=== PATIENT | female | born 1965 | race Caucasian/White ===

== ENCOUNTER 2016-12-29 07:34 | Emergency (ER) ==
[2016-12-29] MEDS ORDERED: CATAPRES ONE (08:24)
[2016-12-29 09:09] LABS: MANUAL DIFF NEEDED? NO; URINE SOURCE CLEAN CATCH
[2016-12-29 09:36] LABS: AGAP 9; ALBUMIN 4.1 g/dL (3.5-5.0); ALKALINE PHOSPHATASE 109 U/L (32-104); BUN 11 mg/dL (8-22); CALCIUM 8.7 mg/dL (8.8-10.2); CHLORIDE 104 mmol/L (98-107); COSMO 277; GOT 21 U/L (10-30); GPT 21 U/L (10-36); POTASSIUM 3.8 mmol/L (3.5-5.1); SODIUM 139 mmol/L (136-145); TCO2 26 mmol/L (25-35)
[2016-12-29 09:39] LABS: URINE WBC <10 /HPF (<10)
[2016-12-29 09:40] LABS: BILIRUBIN URINE NEGATIVE (NEGATIVE); BLOOD URINE 2+ (NEGATIVE); CLARITY CLEAR (CLEAR); COLOR YELLOW; GLUCOSE URINE NEGATIVE (NEGATIVE); LEUKOCYTES URINE TRACE (NEGATIVE); NITRITE URINE NEGATIVE (NEGATIVE); PROTEIN URINE TRACE mg/dL (NEGATIVE); URINE CULTURE PL NEEDED? YES; URINE EPITHELIAL CELLS >10 /HPF (<10); UROBILINOGEN URINE NORMAL
[2016-12-29 09:49] LABS: BASO% 0.5 % (0.0-0.8); EOS# 0.12 X1000 (0.0-0.7); EOS% 1.5 % (0.0-10.0); HEMATOCRIT 45.5 % (37.0-47.0); IMM GRAN# 0.02 X1000 (0.0-0.04); IMM GRAN% 0.2 % (0.0-0.5); LYMPH# 1.66 X1000 (1.2-3.4); LYMPH% 20.3 % (20.5-51.1); MCH 28.2 PG (27-31); MCV 85.5 FL (81-99); MONO# 0.42 X1000 (0.11-0.59); MONO% 5.1 % (1.7-9.3); MPV 9.7 FL (7.4-10.4); NEUT% 72.4 % (42.2-75.2); PLT 350 X1000 (130-400); RBC 5.32 XMIL (4.2-5.4)
--- NOTE | 2016-12-29 09:57 | PROVIDER DOCUMENTATION ---
HPI-General Adult - General Stated Complaint: COLD SX Time Seen by Provider: 12/29/16 09:49 Allergies/Adverse Reactions: Patient Allergies Allergy/AdvReac Type Severity Reaction Status Date / Time ampicillin [Ampicillin] AdvReac Intermediate DEHYDRATION Verified 07/14/12 22:10 Home Medications: Home Medication List Medication Instructions Recorded Confirmed Last Taken Type Albuterol Sulfate [Proair Hfa] 2 puff IH Q4H PRN PRN 07/14/12 12/13/13 12/12/13 17:00 History Clonidine [Catapres] 0.1 mg PO DAILY 07/14/12 12/13/13 12/12/13 09:00 History Furosemide [Lasix] 40 mg PO DAILY PRN 07/14/12 12/13/13 12/10/13 09:00 History Levothyroxine [Synthroid] 250 microgm PO DAILY 07/14/12 12/13/13 12/12/13 09:00 History Omeprazole [Prilosec] 20 mg PO PRN PRN 07/14/12 12/13/13 Unknown History Cephalexin 500 mg PO TID #21 capsule 12/13/13 Unknown Rx Promethazine [Phenergan] 25 - 50 mg PO Q6H PRN PRN #20 12/13/13 Unknown Rx tablet Cephalexin [Keflex] 500 mg PO BID #20 capsule 12/29/16 Unknown Rx Fluticasone 50 Mcg Nasal [place] 1 spray IMER DAILY #1 bottle 12/29/16 Unknown Rx [Flonase] - History of Present Illness -Gen Adult Nature of Presenting Problems: 51 y/o WF c/o body aches, sore throat, left ear pain, and fevers up to 102 F at night for 2-3 days now. 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 Denies cough, reports congestion. Denies abdominal pain, n/v/d, dysuria, frequency or urgency. Denies sob or wheezing. No pre-arrival treatments, had a family member with the flu last week she was exposed to Review of Systems - Adult - REVIEW OF SYSTEMS - ADULT Constitutional: reports: see HPI, chills, fever, fatique Eyes: reports: no symptoms reported, blurred vision, double vision, eye pain Ears, Nose, Mouth & Throat: reports: see HPI, ear pain, throat pain. denies: nose pain Cardiovascular: reports: no symptoms reported. denies: chest pain Respiratory: reports: see HPI, cough. denies: shortness of breath, wheezing Gastrointestinal: reports: no symptoms reported. denies: abdominal pain, diarrhea, nausea, vomiting Genitourinary: reports: no symptoms reported. denies: dysuria, discharge, frequency Musculoskeletal: reports: see HPI, muscle aches. denies: back pain Integumentary: reports: no symptoms reported. denies: rash Neurological: reports: no symptoms reported. denies: dizziness/vertigo, headache/migraines Psychiatric: reports: no symptoms reported Endocrine: reports: no symptoms reported Hematologic/Lymphatic: reports: no symptoms reported Allergic/Immunologic: reports: no symptoms reported All Other Systems: Reviewed and Negative Past History - Adult - PAST MEDICAL HISTORY-ADULT Review of Records: reports: Old Records Reviewed, Nursing Assessment Review, Medications Reviewed, Social history reviewed & non-contributory. Major Childhood Illnesses: reports: denies history Cardiovascular: reports: HTN Respiratory: reports: denies history Gastrointestinal: reports: denies history Obstetrical/Gynecological: reports: denies history Genitourinary: reports: denies history Musculoskeletal: reports: denies history Neurological: reports: denies history Psychiatric: reports: denies history Endocrine/Immune: reports: thyroid disorder (hypo) Other Conditions: reports: denies history - PRIOR SURGERIES/PROCEDURES Surgical/Procedure History: reports: hysterectomy - IMMUNIZATION STATUS Childhood Immunizations: See Nurse Assessment Flu Vaccine: See Nurse Assessment - FAMILY HISTORY Family History: reviewed, not pertinent - SOCIAL HISTORY Smoking: denies Substance Use: none/never Alcohol Use Frequency: never Living Situation: alone Physical Exam-General - PHYSICAL EXAM-ADULT Initial Vital Signs Reviewed: Yes - CONSTITUTIONAL General Appearance: appears well, alert, no apparent distress - EYES Eyes: PERRL/EOMI, pink conjunctivae - HEAD, EARS, NOSE, MOUTH & THROAT HENMT: normocephalic/atraumatic, moist mucous membranes, normal ENT inspection, TMs normal (left side retracted), pharynx normal. negative: pharyngeal erythema , tonsillar exudate, TM abnormal, TM obscurred by cerumen - NECK Neck: non-tender, full range of motion, supple, normal inspection. negative: lymphadenopathy - RESPIRATORY Respiratory: chest non-tender, lungs clear, normal breath sounds, no pleuratic chest pain, no respiratory distress, no accessory muscle use. negative: respiratory distress, decreased breath sounds, accessory muscle use, crackles, rales, rhonchi, wheezing - CARDIOVASCULAR Cardiovascular: normal peripheral pulses - MUSCULOSKELETAL Back Exam: normal inspection Extremity: normal gait Peripheral Pulses: radial (R): 2+, radial (L): 2+ - SKIN Integumentary: normal color, normal turgor, warm/dry - NEUROLOGIC Neurologic: grossly normal, no motor/sensory deficits - PSYCHIATRIC Psych/Mental Status: normal mood/affect, normal thought content, normal thought process Progress - PLAN OF CARE/RESULTS Progress/Plan/Lab Results: ampicillin [Ampicillin] Adverse Reaction (Intermediate, Verified 07/14/12 22:10) DEHYDRATION Albuterol Sulfate [Proair Hfa] 2 puff IH Q4H PRN PRN 07/14/12 Clonidine [Catapres] 0.1 mg PO DAILY 07/14/12 Furosemide [Lasix] 40 mg PO DAILY PRN 07/14/12 Levothyroxine [Synthroid] 250 microgm PO DAILY 07/14/12 Omeprazole [Prilosec] 20 mg PO PRN PRN 07/14/12 Cephalexin 500 mg PO TID #21 capsule 12/13/13 Promethazine [Phenergan] 25 - 50 mg PO Q6H PRN PRN #20 tablet 12/13/13 Cephalexin [Keflex] 500 mg PO BID #20 capsule 12/29/16 Fluticasone 50 Mcg Nasal Purle[place] [Flonase] 1 spray IMER DAILY #1 bottle 12/29/16 Laboratory 12/29/16 12/29/16 12/29/16 08:00 08:00 08:00 WBC RBC Hgb Hct MCV MCH MCHC RDW Std Deviation Plt Count MPV Immature Gran % (Auto) Neut % (Auto) Lymph % (Auto) Real % (Auto) Eos % (Auto) Baso % (Auto) Immature Gran # (Auto) Neut # (Auto) Lymph # (Auto) Real # (Auto) Eos # (Auto) Baso # (Auto) Sodium 139 Potassium 3.8 Chloride 104 Carbon Dioxide 26 Anion Gap 9 BUN 11 Creatinine 0.6 BUN/Creatinine Ratio 18 Glucose 105 H Calculated Osmolality 277 Calcium 8.7 L Total Bilirubin 0.40 AST 21 ALT 21 Alkaline Phosphatase 109 H Total Protein 7.0 Albumin 4.1 Globulin 3.0 Albumin/Globulin Ratio 1.0 Urine Source Urine Color Urine Clarity Urine pH Ur Specific [place] Urine Protein Urine Ketones Urine Blood Urine Nitrite Urine Bilirubin Urine Urobilinogen Urine Microscopic RBC Urine WBC Urine Microscopic WBC Ur Epithelial Cells Urine Bacteria Urine Glucose Influenza A (Rapid) NEGATIVE Influenza B (Rapid) NEGATIVE Group A Strep Rapid NEGATIVE 12/29/16 12/29/16 08:00 08:00 WBC 8.18 RBC 5.32 Hgb 15.0 Hct 45.5 MCV 85.5 MCH 28.2 MCHC 33.0 RDW Std Deviation 13.7 Plt Count 350 MPV 9.7 Immature Gran % (Auto) 0.2 Neut % (Auto) 72.4 Lymph % (Auto) 20.3 L Real % (Auto) 5.1 Eos % (Auto) 1.5 Baso % (Auto) 0.5 Immature Gran # (Auto) 0.02 Neut # (Auto) 5.92 Lymph # (Auto) 1.66 Real # (Auto) 0.42 Eos # (Auto) 0.12 Baso # (Auto) 0.04 Sodium Potassium Chloride Carbon Dioxide Anion Gap BUN Creatinine BUN/Creatinine Ratio Glucose Calculated Osmolality Calcium Total Bilirubin AST ALT Alkaline Phosphatase Total Protein Albumin Globulin Albumin/Globulin Ratio Urine Source CLEAN CATCH Urine Color YELLOW Urine Clarity CLEAR Urine pH 5.0 Ur Specific [place] 1.020 Urine Protein TRACE A Urine Ketones NEGATIVE Urine Blood 2+ A Urine Nitrite NEGATIVE Urine Bilirubin NEGATIVE Urine Urobilinogen NORMAL Urine Microscopic RBC 10-20 A Urine WBC TRACE A Urine Microscopic WBC <10 Ur Epithelial Cells >10 A Urine Bacteria 2+ Urine Glucose NEGATIVE Influenza A (Rapid) Influenza B (Rapid) Group A Strep Rapid Orders Category Date Time Status CBC WITH ELECTRONIC DIFF [HEME] Stat Lab 12/29/16 08:00 Completed COMPREHENSIVE METABOLIC PANEL [CHEM] Stat Lab 12/29/16 08:[address] Stat Lab 12/29/16 08:[address] Stat Lab 12/29/16 08:[address] W/POSS RFLX CULT [URINALYSIS] Stat Lab 12/29/16 08:00 Completed URINE CULTURE [RM] Routine Lab 12/29/16 09:41 Ordered Clonidine [Catapres] Med 12/29/16 08:24 Discontinued 0.1 mg .ROUTE .STK-MED ONE Dr. Shaw to bedside Departure - Departure Time of Disposition Order: 09:56 DIAGNOSIS: URI, acute, Acute UTI Disposition: HOME 01 Certified Medical Emergency: Emergent Condition: Stable Additional Instructions: follow up with your primary care physician ED Follow Up Instructions: You have been treated by a care provider in the Emergency Department. These instructions are being provided to you so you can have an understanding of how to care for yourself upon discharge. Upon discharge from the Emergency Department, you are responsible for making arrangements for follow-up care by a physician of your choice. Take all prescribed medications as directed. Return to the Emergency Department immediately for any new or worsening symptoms. You may call the Physician Referral phone number at [phone] to obtain a list of Physicians who are taking new patients. Prescriptions: Fluticasone 50 Mcg Nasal [place] [Flonase] 1 spray IMER DAILY #1 bottle Cephalexin [Keflex] 500 mg PO BID #20 capsule Referrals: Jermaine Vivar MD [Primary Care Provider] - Attestation - Physician/ ANGELINE Attestation Patient care was provided by Advanced Practice Provider:: Yes Advanced Practice Provider:: Aaliyah De Leon Advanced Practice Provider documentation review:: The Mid-level provider documentation, treatment plan and medical decision making was reviewed by the physician who agrees with all treatment and medical decision making by the MLP. The physician spent face to face time with patient:: Yes Advanced Practice Provider documentation review:: The physician spent face to face time with this patient and agrees with all MLP documentation, treatment, and medical decision making by the MLP. See provider notes for further information.
--- NOTE | 2016-12-29 12:39 | Diag Imaging Result Document ---
PROCEDURE NAME: CHEST-2 VIEWS - 12/29/2016 FRONTAL AND LATERAL CHEST, TWO VIEWS: COMPARISON: 07/14/2012. FINDINGS: The lungs are well expanded. The heart is not enlarged. The vessels are not distended. There are no infiltrates. No pleural effusions. IMPRESSION: No pneumonia.
== END 2016-12-29 10:04 | disposition home or self-care (01) ==
LOC: P.ED 07:34
DX: J06.9 Acute upper respiratory infection, unspecified (principal); N39.0 Urinary tract infection, site not specified; M79.1 Myalgia; R50.9 Fever, unspecified; R53.83 Other fatigue; H53.8 Other visual disturbances; H53.2 Diplopia; H57.10 Ocular pain, unspecified eye; R05 Cough; H92.02 Otalgia, left ear; J02.9 Acute pharyngitis, unspecified; I10 Essential (primary) hypertension; E03.9 Hypothyroidism, unspecified; Z79.899 Other long term (current) drug therapy
CPT/HCPCS: 71020; 80053; 81001; 85025; 87081; 87088; 87430; 87804